=== PATIENT | male | born 1990 | race Two or more races ===

== ENCOUNTER 2018-08-19 11:28 | Emergency (ER) | payer SELFPAY ==
[~2018-08-19] VITALS: Ht 175.3 cm; Wt 83.5 kg
[2018-08-19 11:57] VITALS: Ht 175.3 cm; Wt 83.5 kg
[2018-08-19 13:05] LABS: BASOPHIL % 0.7 % (0-2); PLATELET COUNT 222 x10^3mcL (130-400); RED CELL DISTRIBUTION WIDTH 14.7 % (11.5-14.5)
[2018-08-19 13:11] LABS: CALCIUM 8.9 mg/dL (8.5-10.1); CARBON DIOXIDE 28.9 mmol/L (21-32); CHLORIDE SERUM 105 mmol/L (98-107); CREATININE SERUM 0.9 mg/dL (0.7-1.3); GFR1 > 60 mL/min; GLUCOSE SERUM 103 mg/dL (74-106); POTASSIUM SERUM 4.5 mmol/L (3.5-5.1); SODIUM SERUM 139 mmol/L (136-145)
[2018-08-19 13:15] LABS: ALBUMIN 4.1 g/dL (3.4-5.0); ALKALINE PHOSPHATASE 86 U/L (46-116); ALT/SGPT 23 U/L (16-63); AST/SGOT 11 U/L (15-37); TOTAL PROTEIN, SERUM 8.1 g/dL (6.4-8.2)
[2018-08-19 14:12] LABS: AMPHETAMINE QUAL UR NONE DETECTED (See below)
[2018-08-19 15:07] VITALS: BP 123/78
== END 2018-08-19 15:07 | disposition home or self-care (01) ==
LOC: ED 11:28
PROVIDERS: Emergency Medicine
DX: R07.89 Other chest pain (principal); K21.9 Gastro-esophageal reflux disease without esophagitis
CPT/HCPCS: 36415; Q0092